=== PATIENT | female | born 1960 | race Caucasian/White ===

== ENCOUNTER 2019-11-27 01:18 | Outpatient (CLI) | payer BC, SELFPAY ==
--- NOTE | 2019-11-27 11:50 | DI.MAMMO_ITS ---
EXAM: MG MAMMO SCREENING CLINICAL HISTORY: SCREENING, Z00.00 TECHNIQUE: Bilateral full field digital CC and MLO mammographic images were obtained with 3D tomosyn thesis and utilizing computer aided detection (CAD). COMPARISON: Available for comparison. FINDINGS: Masses/Architectural Distortion: None seen. Microcalcifications: No suspicious pleomorphic-type are seen. Skin Thickening/Nipple Retraction: None. IMPRESSION: 1. No significant interval change with no specific features of malignancy noted. 2. Unless there is more urgent need, screening mammography is recommended, as per [employer] guidelines. BI-RADS Category 1 - Negative Breast Density - Category B - Scattered areas of fibroglandular density A negative radiographic report should not delay biopsy if a dominant or clinically suspicious mass is present. Up to ten percent of cancers are not identified on mammography. A negative report may reinforce clinical impression. Adenosis and dense breasts may obscure an underlying neoplasm. False positive reports average 6 to 10%. Patient will receive a letter notifying them of these results.
== END 2019-11-27 01:38 ==
PROVIDERS: PCP Nurse Practitioner Family; Visit Provider Nurse Practitioner Family
DX: Z12.31 Encounter for screening mammogram for malignant neoplasm of breast (principal); R92.2 Inconclusive mammogram
CPT/HCPCS: 77063; 77067

== ENCOUNTER 2021-06-17 08:58 | Outpatient (REF) | payer BC, SELFPAY ==
--- NOTE | 2021-06-17 08:30 | PAPFT_PTH ---
PATIENT: Romina Limon LOC: [facility]#:[id number] AGE/SX: 60/F ROOM: RE06/17/[address]: Buddy Jeter : 1960 BED: DIS: 06/17/2021 SPEC #: [id number] RECD: 06/17/21 17:40 STATUS: ARABELLA RESaw #: [id number] LANDEN: 06/17/21 08:[address]: Buddy Jeter DEPT: [facility] Cytology RECD BY: Veronica Kurtz ENTERED: 06/17/21 17:41 SP TYPE: PAPFT OTHR DR: Sabrina Wilkerson Tissues: 1 - CX/ENDOCX FOR PAP SMEARS Procedures: PAP THIN PREP/UVM Screening HPV DNA PROBE Comments: [id number]
== END 2021-06-17 08:59 | disposition home or self-care (01) ==
LOC: NCHCN 08:58
PROVIDERS: PCP Nurse Practitioner Family; Visit Provider Nurse Practitioner Family
DX: Z12.4 Encounter for screening for malignant neoplasm of cervix (principal); Z11.51 Encounter for screening for human papillomavirus (HPV)
CPT/HCPCS: 88142; 87624

== ENCOUNTER 2021-06-17 19:54 | Outpatient (REF) | payer BC, SELFPAY ==
[2021-06-17 14:47] LABS: HCT 44.8 % (36.0-46.0); HGB 14.7 g/dL (11.2-15.7); MCH 30.1 pg (27.0-33.0); MCHC 32.8 % (32.0-36.0); MCV 91.6 fL (80-95); MPV 10.9 fL (8.0-11.0); Platelet Count 246 10^3/uL (130-400); RBC 4.89 10^6/uL (3.93-5.22); RDW 12.6 % (11.7-14.6); RDW-SD 42.6 fL; WBC 5.61 10^3/uL (4.4-10.8)
[2021-06-17 15:13] LABS: ALT 64 U/L (14-59); AST 32 U/L (15-37); Alkaline Phosphatase 96 U/L (46-116); Anion Gap 10.9 mmol/L (3-11); BUN 12 mg/dL (7-18); Bilirubin, Total 0.5 mg/dL (0.2-1.0); CO2 23.1 mmol/L (21.0-32.0); CREATININE 0.7 mg/dL (0.55-1.02); Chloride 107 mmol/L (98-107); Glucose 99 mg/dL (74-106); Potassium 4.2 mmol/L (3.5-5.1); Sodium 141 mmol/L (136-145); TSH (W/Ref FT4) 2.74 uIU/mL (0.36-3.74); Total Protein 6.8 g/dL (6.4-8.2)
[2021-06-20 10:29] LABS: HIV-1/2 Ag & Ab Screen Negative (Negative)
[2021-06-20 10:40] LABS: Hepatitis C Ab w Rflx HCV PCR Negative (Negative)
== END 2021-06-17 19:55 | disposition home or self-care (01) ==
LOC: NCHCN 19:54
PROVIDERS: PCP Nurse Practitioner Family; Visit Provider Nurse Practitioner Family
DX: Z00.00 Encounter for general adult medical examination without abnormal findings (principal); Z11.4 Encounter for screening for human immunodeficiency virus [HIV]; Z11.59 Encounter for screening for other viral diseases
CPT/HCPCS: 80053; 85027; 86803; 87389; 84443

== ENCOUNTER 2022-03-28 01:10 | Outpatient (CLI) | payer BC, SELFPAY ==
--- NOTE | 2022-03-28 | DI.MAMMO_ITS ---
Exam(s) MAMMO SCREENING EXAM: MAMMO SCREENING CLINICAL HISTORY: SCREENING, Z12.39. TECHNIQUE: Bilateral full field digital CC and MLO mammographic images were obtained with 3D tomosyn thesis and utilizing computer aided detection (CAD). COMPARISON: Prior mammograms were reviewed. FINDINGS: There has been no significant change in the appearance and distribution of the fibroglandular tissue. There are no new spiculated masses nor malignant appearing microcalcification groups. There is no significant architectural distortion nor skin thickening-retraction. IMPRESSION: No radiographic evidence of malignancy. BI-RADS Category 1 - Negative Breast Density - Category B - Scattered areas of fibroglandular density Breast density Category C or D implies that the patient has dense breast tissue. Dense breast tissue can make it harder to find cancer on a mammogram. Dense breast tissue is also associated with an incr eased risk of breast cancer. This information about the result of the mammogram report was provided to the patient to raise their awareness. Use this report when you speak with the patient about their risks for breast cancer, which includes their family history. At that time, you may recommend additional screening tests (Ultrasoun d or MRI) as these tests may add significant information. A negative radiographic report should not delay biopsy if a dominant or clinically suspicious mass is present. Up to ten percent of cancers are not identified on mammography. A negative report may reinforce clinical impression. Adenosis and dense breasts may obscure an underlying neoplasm. False positive reports average 6 to 10%. Patient will receive a letter notifying them of these results.
== END 2022-03-28 01:30 ==
LOC: DI 01:11
PROVIDERS: PCP Nurse Practitioner Family; Visit Provider Nurse Practitioner Family
DX: Z12.31 Encounter for screening mammogram for malignant neoplasm of breast (principal)
CPT/HCPCS: 77063; 77067

== ENCOUNTER 2022-05-02 09:01 | Day surgery (SDC) | payer BC, SELFPAY ==
--- NOTE | 2022-05-01 20:35 | W.PM.DSUDISC ---
Date of service: 05/02/22 Time of Service: 10:56 Discharge Plan Disposition Patient Disposition: Home Condition: Good Discharge Details Reason For Visit: Screening colonoscopy Attending Provider: Bert Ruelas Primary Care Provider: Sabrina Wilkerson Home Meds and New Rx's Prescriptions: Continued 5-hydroxytryptophan (5-HTP) 100 mg tablet extended release 100 mg PO DIRECTED lidocaine HCl [Lidocaine Viscous] 15 ML solution 5 ml PO QID PRN PRN (Reason: Pain) Qty: 100 0RF Discontinued bisacodyl [Dulcolax (bisacodyl)] 5 mg tablet,delayed release (DR/EC) 5 mg PO ONCE Qty: 4 0RF Rx Instructions: Take according to provider's instructions for colonoscopy prep. polyethylene glycol 3350 17 gram/dose powder 17 g PO ONCE Qty: 238 0RF Rx Instructions: To be taken as directed by prescriber's office for colonoscopy prep. Discharge Instructions Instructions: Diverticulosis (GEN), Diverticulosis Diet (GEN), Colorectal Polyps (GEN) Additional Instructions: Romina, we were able to complete your colonoscopy without any difficulty today. I did find 1 polyp in the rectum. It was small. I removed it completely. I will follow-up with you with the results of the pathology report once they are available. Incidentally, you also have some occasional pancolonic diverticulosis. These are weak spots in the colon wall. We have attached some information here regarding basic dietary management, and symptoms to be mindful of. 1. If tolerated, consume a soft, low fiber diet for 1-2 days. 2. Do not drive, drink alcohol, operate machinery, make critical decisions, or do activities that require coordination or balance for 24 hours. 3. Because air was put into your colon during the procedure, expelling air from your rectum (passing gas or farting) is normal. 4. You may not have a bowel movement for 1-3 days because of the colonoscopy prep. This is normal. 5. Go directly to the emergency room if you notice any of the following: Develop chills (warm to touch), or if you have a thermometer and your temperature is above 101 Difficulty breathing or difficultly swallowing Persistent vomiting Severe abdominal pain, other than gas cramps Severe chest pain Black, tarry stools Any bleeding ? exceeding one tablespoon 6. Call your physician if the site where your intravenous was started becomes red, swollen, painful, and warm to touch. 7. Your physician has reviewed your pre-procedure medications. Please continue to take those medications as previously ordered. You will be given specific information/education regarding any changes to your medications before leaving. Activity:: Activity as Tolerated Diet:: As Tolerated Discharge Orders Discharge Orders: Discharge Order (Routine); Ordered 05/01/22 Ordered By: Bert Ruelas DS: Diagnosis Discharge Diagnosis (1) Screening for colon cancer: Status: Acute Asessment and Plan: Follow-up on pathology report from the polypectomy
--- NOTE | 2022-05-01 20:37 | W.COLOREPORT ---
Date of service: 05/02/22 Time of Service: 10:58 Colonoscopy Report Date of procedure: 05/02/22 Pre-op diagnosis general: Screening colonoscopy Post-op diagnosis procedure note: other (Rectal polyp, rare pancolonic diverticulosis) Procedure: Colonoscopy with polypectomy Surgeon: Bert Ruelas Anesthesia Type: General:No Airway Estimated blood loss (mL): 10 Pathology: other (Rectal polyp) Complications: None Disposition: same day Indications: Romina is 61 years old with a first degree relative with colon cancer. She is undergoing screening colonoscopy. Prep: Miralax/Dulcolax Procedure Start Time: 10:30 Procedure End Time: 10:43 Retraction Time: 8 Findings: Rectal polyp, rare pancolonic diverticulosis Procedure Description: After the induction of monitored anesthetic care, and with the patient in left lateral decubitus position, I began by performing an external anorectal exam.? Perineum and skin were normal, as was the anal verge.? There was no not evidence of external hemorrhoids.? Next, I performed a digital rectal exam.? I did appreciate any abnormal findings.? Next, I advanced a colonoscope into the rectal vault.? I performed retroflexion.? This was normal.? Using insufflation, I then advanced the colonoscope beyond the rectal folds and into the sigmoid colon before advancing towards the cecum.? The quality of the prep was excellent.? There were very rare diverticula along the entire length of the colon. The scope was noted to be in the cecum by identification of the ileocecal valve and appendiceal orifice.? I then began withdrawing the colonoscope using repeated irrigation as necessary for full evaluation of the colonic mucosa. ?Once the scope was withdrawn to the level of the rectum, great care was taken to examine portions of the rectal folds.?Around 10 cm from the anal verge I identified a 0.25 cm polyp. ?It appeared sessile in character. ?I was able to remove this with a cold forcep polypectomy. ?I examined the site, and there was minimal bleeding. ?Once this was completed, I continued to withdraw the scope and examine the remainder of the colonic mucosa. Finally, the scope was withdrawn and the patient was brought to the same-day surgery recovery unit as the anesthetic wore off. ?The findings and instructions were shared with the patient prior to discharge.
[2022-05-02 09:17] VITALS: BP 133/87; PULSE 83; RESP 18; TEMP 36; O2SAT 97
[2022-05-02] MEDS: Lactated Ringers 1,000 ML 80 ML IV (09:48)
--- NOTE | 2022-05-02 10:00 | W.ANESPRE ---
General Info Date of Service Date Performed: 05/02/22 Height: 5 ft Weight: 66 kg Body Mass Index (BMI): 28.4 Surgical Procedure: Operation Date: 05/02/22 10:50 Proposed Procedure Side Surgeon p Colonoscopy Bert Ruelas MD Meds Allergies and Home Medications Allergies Allergy/AdvReac Type Severity Reaction Status Date / Time No Known Allergies Allergy Unverified 05/02/22 09:27 Home Medication Medication Instructions Recorded lidocaine HCl 2 % mucosal solution 5 ml PO QID PRN PRN Pain #100 mL 04/12/15 (Lidocaine Viscous) 5-hydroxytryptophan (5-HTP) 100 mg 100 mg PO DIRECTED 09/14/21 tablet,extended release Current Visit Medications: Current Medications Generic Name Dose Route Start Last Admin Trade Name Mikaq PRN Reason Stop Dose Admin Hyoscyamine Sulfate 0.125 mg 05/01/22 20:38 Hyoscyamine 0.125 Mg Sl/Oral/Chew SL DIRECTED PRN Ringer's Solution 1,000 mls @ 80 mls/hr 05/02/22 06:00 05/02/22 09:48 IV 05/31/22 23:59 80 mls/hr INFUSION JOANNA Administration IV Miscellaneous Supplies 1 each 05/02/22 06:00 Iv Access IV 05/31/22 23:59 DIRECTED JOANNA Ondansetron HCl 4 mg 05/01/22 20:38 Ondansetron 4 Mg/2 Ml Vial IVP Q4H PRN PRN Nausea / Vomiting Sodium Chloride 0 ml 05/02/22 06:00 Normal Saline Flush 10 Ml Syr IV 05/31/22 23:59 PRN PRN Sodium Chloride 0 ml 05/02/22 06:00 Normal Saline 10 Ml Vial IJ 05/31/22 23:59 DIRECTED PRN Sterile Water 0 ml 05/02/22 06:00 Water,Injection,Sterile 10 Ml Vial IJ 05/31/22 23:59 DIRECTED PRN PFSH Active Problems Active Problems: Problem Status Onset Code Screening for colon cancer Z12.11 Family history of colon cancer Z80.0 Medical History Medical History (Updated 05/02/22 @ 09:27 by Mariangel Torres RN) Anxiety Depression Hx of ectopic Hx of ovarian cyst Skin lesion of face Tobacco Smoking/Tobacco Use Status: Never Alcohol Alcohol Intake: current Alcohol intake frequency: 0-2 drinks per day Alcohol type: beer, wine and hard liquor Substance Use Substance use: Never Substance use type: does not use Vital Signs and Lab Results Vital Signs Most Recent Vital Signs in EMR: Most Recent Vital Signs Temp Pulse Resp BP Pulse Ox 36 C L 83 18 133/87 97 05/02/22 09:17 05/02/22 09:17 05/02/22 09:17 05/02/22 09:17 05/02/22 09:17 Lab Results Blood Type / Crossmatch: No Data to Display Complete Blood Count: No Data to Display Complete Metabolic Panel: No Data to Display Liver Function Panel: No Data to Display Coagulation Panel: No Data to Display Cardiac Panel: No Data to Display Arterial Blood Gas: No Data to Display Venous Blood Gas: No Data to Display Pancreas Panel: No Data to Display Thyroid Panel: No Data to Display Infectious Disease: No Data to Display Blood Cultures: No Data to Display Toxicology Panel: No Data to Display Anesthesia Assessment and Plan Anesthesia History Personal History: No History of Anesthesia Complications Family History: No Family History of Anesthesia Complications Exercise Tolerance Exercise Tolerance: Metabolic Equivalents>4 Pertinent Negatives Pertinent Negatives: No Symptoms of GERD, No Major Cardiovascular Symptoms or Complaints and No Major Pulmonary Symptoms or Complaints Cardiac & Pulmonary Exam Cardiac Exam: Normal S1/S2 Heart Sounds Pulmonary Exam: Clear Bilateral Breath Sounds Implantable Cardiac Device Does patient have a Pacemaker or an ICD?: No Airway Exam Known Difficult Airway: No Mallampati Class: 1 Mouth Opening: Normal (> 3cm) Thyromental Distance: Greater than 3 cm Neck Range of Motion: Full ROM Neck Circumference: Normal Teeth Condition: Normal Dentition ASA Classification ASA Score: ASA 2 Emergency Case?: No NPO Status NPO Status: NPO Clears >2 hours, Solids >8 hours Anesthesia Plan Resuscitation Status: Full Code Anesthesia Technique: General Anesthesia Airway Planned: Natural Airway Monitors Used: Standard Monitors
[2022-05-02 10:22] VITALS: BMI 28.4
--- NOTE | 2022-05-02 10:33 | BOWEL_PTH ---
PATIENT: Romina Limon LOC: [facility] U#:[id number] AGE/SX: 61/F ROOM: RE05/02/[address]: Bert Ruelas MD : 1960 BED: DIS: 05/02/2022 SPEC #: [id number] RECD: 05/02/22 12:52 STATUS: ARABELLA REQ #: [id number] LANDEN: 05/02/22 10:[address]: Bert Ruelas DEPT: Surgical Specimen RECD BY: Veronica Kurtz ENTERED: 05/02/22 12:52 SP TYPE: Bowel OTHR DR: Sabrina Wilkerson Tissues: 1 - BIOPSY BOWEL Procedures: GROSS AND MICRO LEVEL 4 Comments: [id number]
[2022-05-02 10:48] VITALS: BP 99/66; PULSE 77; RESP 18; TEMP 36.3; O2SAT 97
--- NOTE | 2022-05-02 11:07 | W.ANESPOSTOP ---
Postoperative Evaluation Date, Time and Location Date Performed: 05/02/22 Time Performed: 11:07 Patient Location: Day Surgery Unit Vital Signs Most Recent Imported Vital Signs: Most Recent Vital Signs Temp Pulse Resp BP Pulse Ox 36.3 C L 77 18 99/66 L 97 05/02/22 10:48 05/02/22 10:48 05/02/22 10:48 05/02/22 10:48 05/02/22 10:48 Pain Score Most Recent Pain Score: Most Recent Pain Score Pain Level 0 05/02/22 10:48 Assessment Mental Status: Awake (Alert & Oriented to Patient Baseline) Airway and Respiratory Function: Patent airway with normal (patient baseline) respiratory exam Cardiovascular Function: Hemodynamically Stable Hydration Status: Adequately Hydrated Nausea & Vomiting: No Nausea or Vomiting Pain: Pt. Denies Any Pain Peripheral Nerve Block: Patient did not receive a nerve block
[2022-05-02 11:16] VITALS: BP 125/76; PULSE 57; RESP 18; TEMP 36.1; O2SAT 100
== END 2022-05-02 11:35 | disposition home or self-care (01) ==
PROVIDERS: PCP Nurse Practitioner Family; Visit Provider Surgery
PROC: 0DJD8ZZ Inspection of Lower Intestinal Tract, Via Natural or Artificial Opening Endoscopic (ICD-10-PCS; CPT 45378; principal; 2022-05-02 10:45)
DX: Z12.11 Encounter for screening for malignant neoplasm of colon (principal); K62.1 Rectal polyp; K57.30 Diverticulosis of large intestine without perforation or abscess without bleeding; Z80.0 Family history of malignant neoplasm of digestive organs
CPT/HCPCS: 45380; 88305

== ENCOUNTER 2022-11-23 12:28 | Outpatient (REF) | payer BC, SELFPAY ==
[2022-11-23 19:59] LABS: Abs Immature Grans 0.01 10^3/uL (0.0-0.06); Absolute Basophil Count 0.04 10^3/uL (0.0-0.2); Absolute Eosinophil Count 0.04 10^3/uL (0.0-0.7); Absolute Lymphocyte Count 1.11 10^3/uL (1.2-3.4); Absolute Monocyte Count 0.53 10^3/uL (0.1-0.8); Absolute Neutrophil Count 4.34 10^3/uL (1.2-6.7); Basophils % 0.7; Eosinophils % 0.7; HCT 44.9 % (36.0-46.0); HGB 15.1 g/dL (11.2-15.7); Immature Grans % 0.2; Lymphocytes % 18.3; MCH 30.5 pg (27.0-33.0); MCHC 33.6 % (32.0-36.0); MCV 91 fL (80-95); MPV 10.8 fL (8.0-11.0); Monocytes % 8.7; Neutrophils % 71.4; Platelet Count 249 10^3/uL (130-400); RBC 4.95 10^6/uL (3.93-5.22); RDW 12.5 % (11.7-14.6); RDW-SD 41.6 fL; WBC 6.07 10^3/uL (4.4-10.8)
[2022-11-23 20:12] LABS: ALT 58 U/L (14-59); AST 38 U/L (15-37); Albumin 4.1 g/dL (3.4-5.0); Alkaline Phosphatase 105 U/L (46-116); BUN 12 mg/dL (7-18); Bilirubin, Total 0.7 mg/dL (0.2-1.0); CREATININE 0.7 mg/dL (0.55-1.02); Calcium 9.4 mg/dL (8.5-10.1); Calculated LDL 145 mg/dL (<100); Chloride 104 mmol/L (98-107); Cholesterol 233 mg/dL (<200); Estimated GFR 97.72 (mL/min/1.73m2); Glucose 88 mg/dL (74-106); HDL Cholesterol 76 mg/dL (40-60); Potassium 4.2 mmol/L (3.5-5.1); Sodium 138 mmol/L (136-145); TSH 1.83 uIU/mL (0.36-3.74); Total Protein 7.3 g/dL (6.4-8.2); Triglyceride 64 mg/dL (<150)
[2022-11-23 20:31] LABS: FREE T4 1.11 ng/dL (0.76-1.46)
== END 2022-11-23 12:29 | disposition home or self-care (01) ==
LOC: NCHCN 12:28
PROVIDERS: PCP Nurse Practitioner Family; Visit Provider Nurse Practitioner Family
DX: R53.83 Other fatigue (principal); Z13.220 Encounter for screening for lipoid disorders
CPT/HCPCS: 80053; 80061; 84439; 84443; 85025

== ENCOUNTER → 2023-03-29 01:08 | Outpatient (CLI) | payer BC, SELFPAY ==
--- NOTE | 2023-03-29 08:46 | DI.MAMMO_ITS ---
Exam(s) MAMMO SCREENING EXAM: MAMMO SCREENING CLINICAL HISTORY: SCREENING,Z12.39 TECHNIQUE: Bilateral full field digital CC and MLO mammographic images were obtained with 3D tomosyn thesis and utilizing computer aided detection (CAD). COMPARISON: Available for comparison. FINDINGS: Masses/Architectural Distortion: None seen. Microcalcifications: No suspicious pleomorphic-type are seen. Skin Thickening/Nipple Retraction: None. IMPRESSION: 1. No significant interval change with no specific features of malignancy noted. 2. Unless there is more urgent need, screening mammography is recommended, as per [employer] guidelines. BI-RADS Category 1 - Negative Breast Density - Category B - Scattered areas of fibroglandular density Breast density category C or D implies that the patient has dense breast tissue. Dense breast tissue is very common and is not abnormal but dense breast tissue can make it harder to find cancer on a ma mmogram. Also, dense breast tissue may increase their breast cancer risk. This information about the result of the mammogram report was provided to the patient to raise their awareness. Use this report when you speak with the patient about their risks for breast cancer, which includes their family hist ory. At that time, you may recommend for more screening tests (Ultrasound or MRI) as they might be us eful based on their risk. A negative radiographic report should not delay biopsy if a dominant or clinically suspicious mass is present. Up to ten percent of cancers are not identified on mammography. A negative report may reinforce clinical impression. Adenosis and dense breasts may obscure an underlying neoplasm. False positive reports average 6 to 10%. Patient will receive a letter notifying them of these results.
== END ==
PROVIDERS: PCP Nurse Practitioner Family; Visit Provider Nurse Practitioner Family
DX: Z12.31 Encounter for screening mammogram for malignant neoplasm of breast (principal)
CPT/HCPCS: 77063; 77067

== ENCOUNTER 2024-01-15 16:00 | Outpatient (REF) | payer BC, SELFPAY ==
[2024-01-15 20:36] LABS: HCT 42.1 % (36.0-46.0); HGB 13.8 g/dL (11.2-15.7); MCH 30.1 pg (27.0-33.0); MCHC 32.8 % (32.0-36.0); MCV 92 fL (80-95); MPV 10.3 fL (8.0-11.0); Platelet Count 347 10^3/uL (130-400); RBC 4.58 10^6/uL (3.93-5.22); RDW-SD 40.8 fL; WBC 9.85 10^3/uL (4.4-10.8)
[2024-01-15 20:57] LABS: ALT 36 U/L (14-59); AST 25 U/L (15-37); Albumin 3.5 g/dL (3.4-5.0); Alkaline Phosphatase 115 U/L (46-116); Anion Gap 10.7 mmol/L (3-11); BUN 10 mg/dL (7-18); Bilirubin, Total 0.35 mg/dL (0.2-1.0); C-Reactive Protein 8.71 mg/dL (<or=0.5); CO2 24.3 mmol/L (21.0-32.0); CREATININE 0.7 mg/dL (0.55-1.02); Calcium 9.8 mg/dL (8.5-10.1); Chloride 107 mmol/L (98-107); Estimated GFR 97.12 (mL/min/1.73m2); Glucose 93 mg/dL (74-106); Lipase 30 U/L (16-77); Potassium 4.3 mmol/L (3.5-5.1); Sodium 142 mmol/L (136-145); Total Protein 6.9 g/dL (6.4-8.2)
== END 2024-01-15 16:01 | disposition home or self-care (01) ==
LOC: NCHCN 16:00
PROVIDERS: Visit Provider Nurse Practitioner Family
DX: R10.31 Right lower quadrant pain (principal)
CPT/HCPCS: 80053; 83690; 85027; 86140

== ENCOUNTER 2024-01-16 17:48 | Observation (INO) | payer BC, SELFPAY ==
[2024-01-16] VITALS (33 sets, daily range): BP systolic 107–151; BP diastolic 30–95; PULSE 52–83; RESP 16–20; TEMP 36.2–37.1; O2SAT 95–99
--- NOTE | 2024-01-16 18:10 | ED.GENADUL_ITS ---
Discharge Plan Disposition Patient Disposition: Admit to [facility] Discharge Details Clinical Impression: Abdominal pain, Appendicitis Primary Care Provider: Unknown,Unknown ED Provider: Jamey Shell Home Meds and New Rx's Prescriptions: No Action 5-hydroxytryptophan (5-HTP) 100 mg tablet extended release 100 mg PO DIRECTED lidocaine HCl [Lidocaine Viscous] 15 ML solution 5 ml PO QID PRN PRN (Reason: Pain) Qty: 100 0RF HPI General Date/Time Provider Initiated Documentation: 01/16/24 17:50 . HPI Narrative: MDM This is an overall very well-appearing normothermic and not tachycardic 63-year-old female with outpatient CT scan concerning for acute appendicitis. Patient has no pain out of proportion to suggest necrotizing soft tissue infection. She is not septic appearing so did not obtain lactate nor drop blood cultures but I did treat empirically with piperacillin/tazobactam. No left lower quadrant tenderness to suggest diverticulitis. No dysuria or frequency so doubt UTI. No rash to abdomen to suggest zoster. No cough nor fevers to suggest pneumonia. No chest pain to suggest ACS and no nausea no vomiting. No history of recent falls to suggest referred pain from hip fracture. 6:27 PM I spoke to Dr. Leyva who agreed graciously to accept the patient for hospitalization. He reported that he would see the patient in the morning. She can have a clear liquid diet for now and she will be n.p.o. at midnight. 7 p.m. Comprehensive metabolic panel showing mild anion gap no DORITA. Mild hyperglycemia but normal bicarbonate??not consistent with DKA. No LFT abnormalities. CBC lacks anemia thrombocytopenia and leukocytosis. 9 PM Met with the patient again. She was felt comfortable. Advised. Plan for n.p.o. at midnight. HPI This is a 63-year-old female with remote history of gynecological surgeries in the past arrived emergency department via private vehicle in the setting of abdominal pain and CT scan concerning for the possibility of appendicitis. Patient reports that she has had abdominal pain for the past approximately 9 days. She initially thought was a stomach bug. Then improved after having a large painful bowel movement. She also has a history of IBS. She has not been nauseous nor vomiting. She last ate at 5 PM this afternoon when she had some custard. Denies dysuria frequency chest pain cough and shortness of breath. Exam General: Well-appearing in no acute distress speaking in complete sentences. Head: Normocephalic, atraumatic. Eye: Extraocular eye movements intact. No conjunctival injection. No scleral icterus. Ear, nose, mouth, throat: Grossly normal inspection. Normal voice, handling secretions normally. Neck: Trachea midline. Cardiovascular: Well-perfused distal extremities. Respiratory: Nonlabored respiration. Gastrointestinal: Nondistended abdomen. Soft, minimally tender abdomen in the right lower quadrant. No rebound. No guarding. Musculoskeletal: No edema. Moving all 4 extremities spontaneously. Skin: Normal for age and race, grossly normal temperature and turgor. No acute rash. Neurologic: Alert and appropriate, no apparent acute deficits. Psychiatric: Mood and manner are appropriate. Grooming and personal hygiene are appropriate. Related Data Home Medications ?Medication ?Instructions ?Recorded ?Confirmed lidocaine HCl 2 % mucosal solution 5 ml PO QID PRN PRN Pain #100 mL 04/12/15 01/16/24 (Lidocaine Viscous) 5-hydroxytryptophan (5-HTP) 100 mg 100 mg PO DIRECTED 09/14/21 01/16/24 tablet,extended release Previous Rx's ?Medication ?Instructions ?Recorded lidocaine HCl 2 % mucosal solution 5 ml PO QID PRN PRN Pain #100 mL 04/12/15 (Lidocaine Viscous) Allergies Allergy/AdvReac Type Severity Reaction Status Date / Time No Known Allergies Allergy Unverified 01/16/24 17:55 General Stated Complaint: Abd Prob GIOVANI: 3 Course Vital Signs Vital signs: Vital Signs Temperature 37.1 C 01/16/24 17:51 Pulse 83 01/16/24 17:51 Respiratory Rate 20 01/16/24 17:51 Blood Pressure 151/77 H 01/16/24 17:51 Pulse Oximetry 97 01/16/24 17:51 Temperature 37.1 C 01/16/24 18:01 Temperature Source Oral 01/16/24 18:01 Pulse 83 01/16/24 18:01 Respiratory Rate 20 01/16/24 18:01 Respiratory Effort Normal, Non-Labored 01/16/24 18:01 Blood Pressure 151/77 H 01/16/24 18:01 Blood Pressure Position Sitting 01/16/24 18:01 Pulse Oximetry 97 01/16/24 18:01 Oxygen Delivery Method Room Air 01/16/24 18:01 Oxygen Flow Rate 0 01/16/24 18:01 Pain Level 0 01/16/24 18:01 Medical Decision Making Quality:SDOH Health Related Social Needs: No Data to Display PFSH All Active Problems (Updated 01/16/24 @ 18:29 by Jamey Shell MD) Appendicitis (Acute) Abdominal pain (Acute) Tubular adenoma of colon (Acute) Screening for colon cancer (Acute) Family history of colon cancer (Acute) father in his 80s Medical History (Updated 01/16/24 @ 18:29 by Jamey Shell MD) Hx of ovarian cyst Hx of ectopic Anxiety Depression Skin lesion of face Surgical History (Updated 05/30/22 @ 15:10 by Sada Merrill RN) History of colonoscopy (~04/2022) Social History (Updated 04/13/22 @ 12:04 by MISAEL Douglas) Smoking/Tobacco Use Status: Never Smoking risk assessment performed?: Yes Alcohol Intake: current Alcohol Intake frequency: 0-2 drinks per day Alcohol type: beer, wine and hard liquor Drug use: Never Substance use type: does not use Do you feel safe at home: Yes Do you feel safe in your relationship?: Yes
[2024-01-16 18:29] LABS: Abs Immature Grans 0.02 10^3/uL (0.0-0.06); Absolute Basophil Count 0.05 10^3/uL (0.0-0.2); Absolute Eosinophil Count 0.05 10^3/uL (0.0-0.7); Absolute Lymphocyte Count 1.52 10^3/uL (1.2-3.4); Absolute Monocyte Count 0.74 10^3/uL (0.1-0.8); Absolute Neutrophil Count 8.03 10^3/uL (1.2-6.7); Basophils % 0.5 %; Eosinophils % 0.5 %; HCT 41.2 % (36.0-46.0); HGB 13.6 g/dL (11.2-15.7); Immature Grans % 0.2 %; Lymphocytes % 14.6 %; MCV 91 fL (80-95); MPV 9.3 fL (8.0-11.0); Monocytes % 7.1 %; Neutrophils % 77.1 %; Platelet Count 341 10^3/uL (130-400); RBC 4.53 10^6/uL (3.93-5.22); RDW 11.9 % (11.7-14.6); RDW-SD 39.8 fL; WBC 10.41 10^3/uL (4.4-10.8)
[2024-01-16] MEDS: PIPERACILLIN/TAZO 3.375 GM in Normal Saline 50 ML IVPB ×2 (18:33→23:39)
[2024-01-16 18:44] LABS: ALT 31 U/L (14-59); AST 18 U/L (15-37); Albumin 3.4 g/dL (3.4-5.0); Alkaline Phosphatase 116 U/L (46-116); Anion Gap 11.7 mmol/L (3-11); BUN 8 mg/dL (7-18); CO2 25.3 mmol/L (21.0-32.0); CREATININE 0.7 mg/dL (0.55-1.02); Calcium 9.4 mg/dL (8.5-10.1); Chloride 104 mmol/L (98-107); Estimated GFR 97.12 (mL/min/1.73m2); Glucose 110 mg/dL (74-106); Potassium 3.7 mmol/L (3.5-5.1); Sodium 141 mmol/L (136-145); Total Protein 7.2 g/dL (6.4-8.2)
--- NOTE | 2024-01-16 19:20 | W.SURGCON ---
Date of service: 01/16/24 Time of Service: 19:20 Assessment and Plan Assessment and plan (1) Appendicitis: Status: Acute Assessment and plan: 63 yo with appendicitis on cross sectional imaging. Somewhat unusual presentation being 9 days. Perhaps a viral illness to begin with has resulted in appendicitis now as a secondary process. Overall plan: Abx NPO DVT ppx analgesia prn Lap appendectomy tomorrow History of Present Illness Narrative: 63 yo woman with reported RLQ abdominal pain x 9 days presented after elective CT scan showed appendicitis. PFSH All Active Problems (Updated 01/16/24 @ 18:29 by Jamey Shell MD) Appendicitis (Acute) Abdominal pain (Acute) Tubular adenoma of colon (Acute) Screening for colon cancer (Acute) Family history of colon cancer (Acute) father in his 80s Medical History (Updated 01/16/24 @ 18:29 by Jamey Shell MD) Hx of ovarian cyst Hx of ectopic Anxiety Depression Skin lesion of face Surgical History (Updated 05/30/22 @ 15:10 by Sada Merrill RN) History of colonoscopy (~04/2022) Social History (Updated 04/13/22 @ 12:04 by MISAEL Douglas) Smoking/Tobacco Use Status: Never Smoking risk assessment performed?: Yes Alcohol Intake: current Alcohol Intake frequency: 0-2 drinks per day Alcohol type: beer, wine and hard liquor Drug use: Never Substance use type: does not use Do you feel safe at home: Yes Do you feel safe in your relationship?: Yes Exam Narrative Exam Narrative: Reportedly HD stable with soft abdomen, mild but focal tenderness. Results Last Vital Signs Temp 98.8 F 01/16/24 18:01 Pulse 60 01/16/24 18:45 Resp 20 01/16/24 18:01 BP 107/88 01/16/24 18:45 Pulse Ox 97 01/16/24 18:50 Labs 01/16/24 18:19 01/16/24 18:19 Labs: Laboratory Results - last 24 hr 01/16/24 18:19 WBC 10.41 RBC 4.53 Hgb 13.6 Hct 41.2 MCV 91 MCH 30.0 MCHC 33.0 RDW 11.9 Plt Count 341 MPV 9.3 Immature Gran % 0.2 Neutrophils % 77.1 Lymphocytes % 14.6 Monocytes % 7.1 Eosinophils % 0.5 Basophils % 0.5 Nucleated RBC % 0.0 Absolute Neutrophils 8.03 H Absolute Lymphocytes 1.52 Absolute Monocytes 0.74 Absolute Eosinophils 0.05 Absolute Basophils 0.05 Sodium 141 Potassium 3.7 Chloride 104 Carbon Dioxide 25.3 Anion Gap 11.7 H BUN 8 Creatinine 0.7 Est GFR (CKD-EPI 2020) 97.12 Glucose 110 H Calcium 9.4 Total Bilirubin 0.40 AST 18 ALT 31 Alkaline Phosphatase 116 Total Protein 7.2 Albumin 3.4 ABO/Rh A Positive Antibody Screen NEGATIVE
[2024-01-16] MEDS: Heparin 5,000 UNITS/ML VIAL 5000 UNITS SC (20:08)
[2024-01-16] MEDS: ACETAMINOPHEN 1,000 MG/100 ML BAG 400 MG IVPB (20:09)
--- NOTE | 2024-01-16 21:40 | W.PC.ACHO ---
Registration Status: Primary Language: Preferred Language: ED Information & Data Chief Complaint Abd Prob 01/16/24 18:14 Triage Note patient state she went to 01/16/24 17:51 her pcp yesterday and had a CT done today and was called to come in to the hospital because she has appendicitis . currently patient is having right sided abdominal pain with activities Medical / Surgical History (Last Updated 05/02/22 @ 09:27 by Mariangel Torres, [place]) Hx of ovarian cyst Hx of ectopic Anxiety Depression Skin lesion of face (Last Updated 05/30/22 @ 15:10 by Sada Merrill RN) History of colonoscopy (~04/2022) Most Recent Vital Signs Temperature 37.1 C 01/16/24 18:01 Temperature Source Oral 01/16/24 18:01 Pulse 60 01/16/24 21:01 Respiratory Rate 20 01/16/24 18:01 Respiratory Effort Normal, Non-Labored 01/16/24 18:01 Blood Pressure 123/68 01/16/24 21:01 Blood Pressure Mean 87 01/16/24 21:01 Blood Pressure Position Sitting 01/16/24 18:01 Pulse Oximetry 96 01/16/24 21:10 Oxygen Delivery Method Room Air 01/16/24 18:01 Oxygen Flow Rate 0 01/16/24 18:01 Pain Level 5 01/16/24 20:36 Allergies No Known Allergies Allergy (Unverified 01/16/24 17:55) Precautions Isolation Standard precaution 01/16/24 18:01 Active Medications Generic Name Dose Route Start Last Admin Trade Name Freq PRN Reason Stop Dose Admin Heparin Sodium (Porcine) 5,000 units 01/16/24 19:30 01/16/24 20:08 Heparin 5,000 Units/Ml Vial SC 5,000 units Q8H JOANNA Administration Piperacillin Sod/Tazobactam 50 mls @ 100 mls/hr 01/16/24 19:30 01/16/24 20:29 Sod 3.375 gm/ Sodium Chloride IVPB Not Given Q6H JOANNA Acetaminophen 1,000 mg in 100 mls @ 400 mls/hr 01/16/24 19:30 01/16/24 20:28 Ofirmev IVPB Infused Q6H JOANNA Infusion IV IV Catheter Type [Left Forearm Saline Lock ] IV Catheter Gauge [Left 20 Forearm] Diet Orders Category Date Time Status Nothing Per Oral [DIET] Nutrition 01/16/24 Dinner Active npo [Nothing Per Oral] [DIET] Nutrition 01/16/24 Dinner Active Diagnostics 01/16/24 Range/Units 18:19 WBC 10.41 (4.4-10.8) 10^3/uL RBC 4.53 (3.93-5.22) 10^6/uL Hgb 13.6 (11.2-15.7) g/dL Hct 41.2 (36.0-46.0) % MCV 91 (80-95) fL MCH 30.0 (27.0-33.0) pg MCHC 33.0 (32.0-36.0) % RDW 11.9 (11.7-14.6) % Plt Count 341 (130-400) 10^3/uL MPV 9.3 (8.0-11.0) fL Immature Gran % 0.2 % Neutrophils % 77.1 % Lymphocytes % 14.6 % Monocytes % 7.1 % Eosinophils % 0.5 % Basophils % 0.5 % Nucleated RBC % 0.0 (0.0-0.3) % Absolute Neutrophils 8.03 H (1.2-6.7) 10^3/uL Absolute Lymphocytes 1.52 (1.2-3.4) 10^3/uL Absolute Monocytes 0.74 (0.1-0.8) 10^3/uL Absolute Eosinophils 0.05 (0.0-0.7) 10^3/uL Absolute Basophils 0.05 (0.0-0.2) 10^3/uL Sodium 141 (136-145) mmol/L Potassium 3.7 (3.5-5.1) mmol/L Chloride 104 (98-107) mmol/L Carbon Dioxide 25.3 (21.0-32.0) mmol/L Anion Gap 11.7 H (3-11) mmol/L BUN 8 (7-18) mg/dL Creatinine 0.7 (0.55-1.02) mg/dL Est GFR (CKD-EPI 2020) 97.12 (mL/min/1.73m2) Glucose 110 H (74-106) mg/dL Calcium 9.4 (8.5-10.1) mg/dL Total Bilirubin 0.40 (0.2-1.0) mg/dL AST 18 (15-37) U/L ALT 31 (14-59) U/L Alkaline Phosphatase 116 (46-116) U/L Total Protein 7.2 (6.4-8.2) g/dL Albumin 3.4 (3.4-5.0) g/dL ABO/Rh A Positive Antibody Screen NEGATIVE Intake and Output - 24 Hour Total 01/16/24 17:48 thru 01/16/24 20:28 Intake Total 160 Balance 160 Weight 64.864 kg Intake: IV 160 Falls Risk Assessment History of Falls No History 01/16/24 18:01 Contributing Factors No Factors 01/16/24 18:01 Ambulatory Aids Independent 01/16/24 18:01 Tubes/Lines W/no contributing factors 01/16/24 18:01 Gait Evaluation No gait disturbance 01/16/24 18:01 Cognition No cognitive impairment 01/16/24 18:01 Fall Total Score 10 01/16/24 18:01 Level of Risk Standard/Low Risk 01/16/24 18:01 Problems (Last Updated 05/02/22 @ 09:27 by Mariangel Torres RN) Appendicitis (Acute) Abdominal pain (Acute) v v v v v v v v v Sending and/or Receiving Nurses: Please use comment section below to note any information pertinent to the patient hand-off not included above. Information / Comments: Pt AAOX3, pain controlled with tylenol, having diarrhea, 5 large loose BM. Report received from: Tamra Ortiz ED RN
[2024-01-16] MEDS: MORPHine 2 MG/ML SYR IVP (23:37)
[2024-01-17] VITALS (29 sets, daily range): BP systolic 63–110; BP diastolic 24–71; PULSE 57–82; RESP 12–23; TEMP 35.6–36.5; O2SAT 95–100; BMI 27.7
[2024-01-17] MEDS: ACETAMINOPHEN 1,000 MG/100 ML BAG 400 MG IVPB ×3 (02:08→19:54)
[2024-01-17] MEDS: MORPHine 2 MG/ML SYR IVP ×2 (06:03→21:18)
[2024-01-17] MEDS: PIPERACILLIN/TAZO 3.375 GM in Normal Saline 50 ML IVPB ×4 (06:05→23:46)
--- NOTE | 2024-01-17 08:20 | W.PM.PROGNOT ---
Date of Service Date of service: 01/17/24 Time of Service: 08:20 Assessment and Plan Assessment and plan (1) Appendicitis: Status: Acute Assessment and plan: 63-year-old woman with right lower quadrant pain and CT scan findings can concerning for acute appendicitis. Interestingly enough, her had Salmonella infection that required hospitalization only about 2 weeks ago or so. She herself is had her symptoms for 9 days. There is a family history of colon cancer and CT scan says an appendiceal mass cannot be ruled out. I have reviewed the CT scan myself. There is no free air and no obvious free fluid. To me the inflammation looks isolated to the appendix though it is certainly possible the terminal ileum is inflamed. I do not appreciate anything that suggests radiographically that it might be a mass. Overall I had a detailed discussion with the patient and her at the bedside about the possibility that this could be a Salmonella-induced mesenteric adenitis and/or terminal ileitis. While it is a rare entity, does well?described as a mimicker/masquerade for appendicitis. Her symptoms are completely atypical. She has had pain for 9 days which is unusual. She has no peritoneal signs on examination and did not have any last night when I examined her after her admission. The chance of this being an appendiceal tumor exists but I think it is unlikely. My recommendations are to proceed with diagnostic laparoscopy. If this is ileitis/cecum inflammation and the appendix looks completely normal, I am going to leave it in situ. This will reassure us both that it is not appendicitis #1 but also that there is no appendiceal mass. However, if there is any question of the appendix being the etiology and/or there is any mass?appearance to the appendix, then I will remove it. The patient and her are in agreement with the plan and wish to proceed. Overall plan: Diagnostic laparoscopy, likely appendectomy Subjective Subjective Interval history since last seen: No overnight events. She feels significantly better this morning. Exam Narrative Exam Narrative: Gen: Non-toxic, comfortable and interactive Neuro: Alert and oriented x3 Psych: Good mood and affect. Good insight and understanding into condition. Chest: Non-labored breathing, no wheezing, no visible shortness of breath. Heart: Regular Abdomen: Soft, nondistended, minimal tenderness in the right lower quadrant, no peritoneal signs Objective Last Vital Signs Temp 97.2 F L 01/17/24 06:19 Pulse 74 01/17/24 06:19 Resp 18 01/17/24 06:19 BP 106/57 L 01/17/24 06:19 Pulse Ox 97 01/17/24 06:19 Laboratory Results - last 24 hr 01/16/24 18:19 WBC 10.41 RBC 4.53 Hgb 13.6 Hct 41.2 MCV 91 MCH 30.0 MCHC 33.0 RDW 11.9 Plt Count 341 MPV 9.3 Immature Gran % 0.2 Neutrophils % 77.1 Lymphocytes % 14.6 Monocytes % 7.1 Eosinophils % 0.5 Basophils % 0.5 Nucleated RBC % 0.0 Absolute Neutrophils 8.03 H Absolute Lymphocytes 1.52 Absolute Monocytes 0.74 Absolute Eosinophils 0.05 Absolute Basophils 0.05 Sodium 141 Potassium 3.7 Chloride 104 Carbon Dioxide 25.3 Anion Gap 11.7 H BUN 8 Creatinine 0.7 Est GFR (CKD-EPI 2020) 97.12 Glucose 110 H Calcium 9.4 Total Bilirubin 0.40 AST 18 ALT 31 Alkaline Phosphatase 116 Total Protein 7.2 Albumin 3.4 ABO/Rh A Positive Antibody Screen NEGATIVE PAWSS Have you Been Recently Intoxicated or Drunk Within the Last 30 days?: No Have you Ever Experienced Previous Episodes of Alcohol Withdrawal?: No Have you ever Experienced Withdrawal Seizures?: No Have you ever Experienced Delirium Tremens(DT)s?: No Have you ever undergone Alcohol Rehabilitation Treatment (i.e, inpt ot outpatient treatment programs)?: No Have you ever Experienced Blackouts?: No Have you ever Combined Alcohol with other Downers within the last 90 days?: No Have you ever Combined Alcohol with any other Substance of Abuse during the last 90 days?: No Positive Blood Alcohol level on Presentation? [PCS.BAL]: No Evidence of Increased Autonomic Activity (i.e. HR>120, tremor, sweating, agitation, nausea)?: No Result: 0 Time Spent with Patient Time Spent with Patient: <25 minutes Time was spent: preparing to see the patient(eg.review tests), obtaining and/or reviewing separately otained hiistory, ordering medications,tests, procedures, referring, communicating with other health director of healthcare systems, indepentently interpreting results, counseling the patient, care coordination and other
--- NOTE | 2024-01-17 11:30 | ANES.PREOP_ITS ---
General Info Date of Service Date Performed: 01/17/24 Height: 5 ft Weight: 64.365 kg Body Mass Index (BMI): 27.7 Surgical Procedure: Operation Date: 01/17/24 13:10 Proposed Procedure Side Surgeon p Appendectomy Laparoscopic Wesley Leyva MD Meds Allergies and Home Medications Allergies Allergy/AdvReac Type Severity Reaction Status Date / Time cedar leaf Allergy Severe Hives Verified 01/16/24 23:09 cedarwood Allergy Severe Hives Verified 01/16/24 23:09 Home Medication ?Medication ?Instructions ?Recorded lidocaine HCl 2 % mucosal solution 5 ml PO QID PRN PRN Pain #100 mL 04/12/15 (Lidocaine Viscous) 5-hydroxytryptophan (5-HTP) 100 mg 100 mg PO DIRECTED 09/14/21 tablet,extended release Current Visit Medications: Current Medications Generic Name Dose Route Start Last Admin Trade Name Freq PRN Reason Stop Dose Admin Heparin Sodium (Porcine) 5,000 units 01/17/24 06:00 01/17/24 06:04 Heparin 5,000 Units/Ml Vial SC Not Given Q8H JOANNA Piperacillin Sod/Tazobactam 50 mls @ 100 mls/hr 01/17/24 00:00 01/17/24 06:40 Sod 3.375 gm/ Sodium Chloride IVPB Infused Q6H JOANNA Infusion Acetaminophen 1,000 mg in 100 mls @ 400 mls/hr 01/17/24 02:00 01/17/24 08:52 Ofirmev IVPB 400 mls/hr Q6H JOANNA Administration IV Miscellaneous Supplies 1 each 01/16/24 19:30 Iv Access IV DIRECTED JOANNA Morphine Sulfate 2 mg 01/16/24 19:23 01/17/24 06:03 Morphine 2 Mg/Ml Syr IVP 2 mg Q1H PRN PRN Administration Ondansetron HCl 4 mg 01/16/24 19:23 Ondansetron 4 Mg/2 Ml Vial IVP Q4H PRN PRN PFSH Active Problems Active Problems: Problem Status Onset Code Appendicitis Acute K37 Abdominal pain Acute R10.9 Tubular adenoma of colon Acute D12.6 Screening for colon cancer Acute Z12.11 Family history of colon cancer Acute Z80.0 Medical History Medical History (Updated 01/16/24 @ 21:47 by REYES OCNTRERAS) Hx of ovarian cyst Hx of ectopic Anxiety Depression Skin lesion of face Surgical History Surgical History (Updated 05/30/22 @ 15:10 by Sada Merrill RN) History of colonoscopy (~04/2022) Tobacco Smoking/Tobacco Use Status: Never Alcohol Alcohol Intake: current Alcohol intake frequency: 0-2 drinks per day Alcohol type: beer, wine and hard liquor Substance Use Substance use: Never Substance use type: does not use Vital Signs and Lab Results Vital Signs Most Recent Vital Signs in EMR: Most Recent Vital Signs Temp Pulse Resp BP Pulse Ox 36.2 C L 74 18 106/57 L 97 01/17/24 06:19 01/17/24 06:19 01/17/24 06:19 01/17/24 06:19 01/17/24 06:19 Lab Results 01/16/24 18:19 01/16/24 18:19 Blood Type / Crossmatch: 2 Antibody Screen NEGATIVE 01/16/24 Complete Blood Count: 2 White Blood Count 10.41 10^3/uL (4.4-10.8) 01/16/24 18:19 Red Blood Count 4.53 10^6/uL (3.93-5.22) 01/16/24 18:19 Hemoglobin 13.6 g/dL (11.2-15.7) 01/16/24 18:19 Hematocrit 41.2 % (36.0-46.0) 01/16/24 18:19 Platelet Count 341 10^3/uL (130-400) 01/16/24 18:19 Complete Metabolic Panel: 2 Sodium 141 mmol/L (136-145) 01/16/24 18:19 Potassium 3.7 mmol/L (3.5-5.1) 01/16/24 18:19 Chloride 104 mmol/L (98-107) 01/16/24 18:19 Carbon Dioxide 25.3 mmol/L (21.0-32.0) 01/16/24 18:19 BUN 8 mg/dL (7-18) 01/16/24 18:19 Creatinine 0.7 mg/dL (0.55-1.02) 01/16/24 18:19 Est GFR (CKD-EPI 2020) 97.12 (mL/min/1.73m2) 01/16/24 18:19 Calcium 9.4 mg/dL (8.5-10.1) 01/16/24 18:19 Albumin 3.4 g/dL (3.4-5.0) 01/16/24 18:19 Glucose 110 mg/dL (74-106) H 01/16/24 18:19 C-Reactive Protein 8.71 mg/dL (<or=0.5) H 01/15/24 14:40 Liver Function Panel: 2 Alanine Aminotransferase (ALT/SGPT) 31 U/L (14-59) 01/16/24 18: 19 Aspartate Amino Transf (AST/SGOT) 18 U/L (15-37) 01/16/24 18:19 Coagulation Panel: 2 No Data to Display Cardiac Panel: 2 No Data to Display Arterial Blood Gas: 2 No Data to Display Venous Blood Gas: 2 No Data to Display Pancreas Panel: 2 Lipase 30 U/L (16-77) 01/15/24 14:40 Thyroid Panel: 2 No Data to Display Infectious Disease: 2 No Data to Display Blood Cultures: 2 No Data to Display Toxicology Panel: 2 No Data to Display Anesthesia Assessment and Plan Anesthesia History Personal History: No History of Anesthesia Complications Family History: No Family History of Anesthesia Complications Exercise Tolerance Exercise Tolerance: Metabolic Equivalents>4 Pertinent Negatives Pertinent Negatives: No Symptoms of GERD, No Major Cardiovascular Symptoms or Complaints and No Major Pulmonary Symptoms or Complaints Cardiac & Pulmonary Exam Cardiac Exam: Normal S1/S2 Heart Sounds Pulmonary Exam: Clear Bilateral Breath Sounds Implantable Cardiac Device Does patient have a Pacemaker or an ICD?: No Airway Exam Known Difficult Airway: No Mallampati Class: 1 Mouth Opening: Normal (> 3cm) Thyromental Distance: Greater than 3 cm Neck Range of Motion: Full ROM Neck Circumference: Normal Teeth Condition: Normal Dentition ASA Classification ASA Score: ASA 2 Emergency Case?: Yes NPO Status NPO Status: NPO Clears >2 hours, Solids >8 hours Anesthesia Plan Resuscitation Status: Full Code Anesthesia Technique: General Anesthesia Airway Planned: Endotracheal Tube Monitors Used: Standard Monitors
[2024-01-17] MEDS: Lactated Ringers 1,000 ML 30 ML IV (13:33)
--- NOTE | 2024-01-17 14:43 | APP_PTH ---
PATIENT: Romina Limon LOC: U#:[id number] AGE/SX: 63/F ROOM: 214 RE01/16/[address]: Wesley Leyva : 1960 BED: A DIS: 01/20/2024 SPEC #: [id number] RECD: 01/17/24 18:30 STATUS: ARABELLA REQ #: [id number] LANDEN: 01/17/24 14:[address]: Wesley Leyva DEPT: Surgical Specimen RECD BY: Veronica Kurtz ENTERED: 01/17/24 18:31 SP TYPE: Appendix OTHR DR: Unknown,Unknown Tissues: 1 - APPENDIX NOT INCIDENTAL Procedures: GROSS AND MICRO LEVEL 3 Comments: [id number]
[2024-01-17] MEDS: Bupivacaine 0.25% Pres-Free 30 ML VIAL (14:58)
[2024-01-17] MEDS: Bupivacaine LIPOSOME/PF 133 MG/10 ML VIAL IJ (14:58)
[2024-01-17] MEDS: ePHEDrine 25 MG/5 ML Syringe IVP ×2 (15:12→15:35)
[2024-01-17] MEDS: fentaNYL 100 MCG/2 ML VIAL IVP ×2 (15:35→15:45)
--- NOTE | 2024-01-17 16:05 | PDOC.CMIN ---
Date of service: 01/17/24 Time of Service: 16:07 Care Management Initial Assmt Initial Assessment Reason for Hospitalization: acute appendicitis Functional Status/Living Situation Patient Presentation: Romina was in the OR when CM attempted to meet with her. Later, CM attempted to meet with her once she arrived to her room, but her RN was completing an assessment, therefore she was not available. Per chart review, Romina lives in [place] with her , Gunnar. They have a son who lives nearby, and a daughter who lives in [place]. CM will continue to follow. Town of Residence: [place] Resides with: Spouse Natural Supports: , Gunnar daughter, Regina son, Kenroy Instrumental Activities of Daily Living (ADLs): Independent Medications Medication Management: No Issues/Barriers identified Advance Directives Advance Directives: Do you have an Advance Directive: N 06/30/21 14:51 AD On File at [facility]: N 06/30/21 14:51 Date Asked 01/16/24 01/16/24 11:28 AD Date Reviewed COLST On File at [facility] COLST Date Scanned Code Status Resuscitation Status Full Code Insurance Coverage/Financial Issues Insurance: BC/BS Care Team Visit Care Team Role Provider Type Unknown Unknown Primary Care Provider STAFF PHYSICIAN Jamey Shell MD Emergency Provider [facility] STAFF PHYSICIAN Wesley Leyva MD Admit Provider [facility] STAFF PHYSICIAN Attending Provider Discharge Potential Discharge Needs: Surgical F/U Appt Anticipated Barriers to Discharge: None Identified Patient/Family Education Needs: Review discharge instructions, discuss Ask Me Three Transportation: Private vehicle Plan: Anticipate Romina will return home once medically cleared. Her will drive her home via private vehicle. She will follow up with surgical services and her discharge plan of care. CM will continue to follow. PFSH All Active Problems (Updated 01/16/24 @ 21:47 by REYES CONTRERAS) Appendicitis (Acute) Abdominal pain (Acute) Tubular adenoma of colon (Acute) Screening for colon cancer (Acute) Family history of colon cancer (Acute) father in his 80s Medical History (Updated 01/16/24 @ 21:47 by REYES CONTRERAS) Hx of ovarian cyst Hx of ectopic Anxiety Depression Skin lesion of face Surgical History (Updated 05/30/22 @ 15:10 by Sada Merrill RN) History of colonoscopy (~04/2022) Social History (Updated 04/13/22 @ 12:04 by KRISTIAN Douglas Smoking/Tobacco Use Status: Never Smoking risk assessment performed?: Yes Alcohol Intake: current Alcohol Intake frequency: 0-2 drinks per day Alcohol type: beer, wine and hard liquor Drug use: Never Substance use type: does not use Housing: house Do you feel safe at home: Yes Do you feel safe in your relationship?: Yes SDOH(Care Management) Screening Will the Patient Participate in the Screening?: Yes Do you worry about having a steady place to live?: no In the past 12 months, have you had to go without electric, gas, oil or water in your home?: no Have you or anyone in your house had to go without enough food to eat?: no Has lack of transportation kept you from medical appointments or from doing things needed for daily living?: no Has anyone in your support network made you feel unsafe for any reason?: no
--- NOTE | 2024-01-17 16:22 | W.ANESPOSTOP ---
Postoperative Evaluation Date, Time and Location Date Performed: 01/17/24 Time Performed: 15:50 Patient Location: PACU Vital Signs Most Recent Imported Vital Signs: Most Recent Vital Signs Temp Pulse Resp BP Pulse Ox 36.3 C L 79 16 101/46 L 95 01/17/24 15:22 01/17/24 15:52 01/17/24 15:52 01/17/24 15:52 01/17/24 15:52 Pain Score Most Recent Pain Score: Most Recent Pain Score Pain Level [Right Lower 3 01/17/24 12:07 Abdomen] Pain Level 5 01/17/24 15:49 Assessment Mental Status: Awake (Alert & Oriented to Patient Baseline) Airway and Respiratory Function: Patent airway with normal (patient baseline) respiratory exam Cardiovascular Function: Hemodynamically Stable Hydration Status: Adequately Hydrated Nausea & Vomiting: No Nausea or Vomiting Pain: Pain is tolerable per patient Peripheral Nerve Block: Patient did not receive a nerve block
[2024-01-17] MEDS: Ketorolac 15 MG/ML VIAL IVP ×2 (17:35→23:43)
[2024-01-17] MEDS: Heparin 5,000 UNITS/ML VIAL 5000 UNITS SC (21:19)
[2024-01-17] MEDS: Normal Saline Flush 10 ML SYR IVP (23:44)
[2024-01-18] MEDS: ACETAMINOPHEN 1,000 MG/100 ML BAG 400 MG IVPB ×4 (02:24→19:36)
[2024-01-18 03:04] VITALS: BP 94/63; PULSE 55; RESP 16; TEMP 36.3; O2SAT 94
[2024-01-18] MEDS: PIPERACILLIN/TAZO 3.375 GM in Normal Saline 50 ML IVPB ×4 (05:30→23:43)
[2024-01-18] MEDS: Heparin 5,000 UNITS/ML VIAL 5000 UNITS SC ×3 (05:31→21:42)
[2024-01-18] MEDS: Normal Saline Flush 10 ML SYR IVP ×3 (05:31→17:38)
[2024-01-18] MEDS: Ketorolac 15 MG/ML VIAL IVP ×2 (05:39→18:15)
[2024-01-18 06:58] LABS: HGB 12.6 g/dL (11.2-15.7); MCH 30.2 pg (27.0-33.0); MCHC 33.2 % (32.0-36.0); MCV 91 fL (80-95); MPV 9.6 fL (8.0-11.0); Platelet Count 334 10^3/uL (130-400); RBC 4.17 10^6/uL (3.93-5.22); RDW 11.8 % (11.7-14.6); RDW-SD 39.7 fL; WBC 18.68 10^3/uL (4.4-10.8)
[2024-01-18 07:38] VITALS: BP 108/58; PULSE 58; RESP 17; TEMP 36.2; O2SAT 97
--- NOTE | 2024-01-18 07:50 | W.PM.PROGNOT ---
Date of Service Date of service: 01/18/24 Time of Service: 07:52 Assessment and Plan Assessment and plan (1) History of appendectomy: Assessment and plan: 63-year-old woman is postop day 1 from laparoscopic appendectomy for perforated appendicitis. She is hemodynamically stable She is tolerating diet. She has had good urine output. She has elevated leukocytosis which is completely expected. Overall plan: IV antibiotics Clear liquid diet, then start Prophylaxis Analgesia as needed Out of bed and ambulate Discharge when afebrile and no leukocytosis Subjective Subjective Interval history since last seen: No overnight events or clinical concerns. Endorses good improvement in my symptoms. Exam Narrative Exam Narrative: Gen: Non-toxic, comfortable and interactive Neuro: Alert and oriented x3 Psych: Good mood and affect. Good insight and understanding into condition. Chest: Non-labored breathing, no wheezing, no visible shortness of breath. Heart: Regular Abdomen: Soft, nondistended, appropriately tender. Her incision sites are stained but dry. The drain output is scant and mildly purulent. Objective Last Vital Signs Temp 97.2 F L 01/18/24 07:38 Pulse 58 L 01/18/24 07:38 Resp 17 01/18/24 07:38 BP 108/58 L 01/18/24 07:38 Pulse Ox 97 01/18/24 07:38 Laboratory Results - last 24 hr 01/18/24 06:30 WBC 18.68 H RBC 4.17 Hgb 12.6 Hct 38.0 MCV 91 MCH 30.2 MCHC 33.2 RDW 11.8 Plt Count 334 MPV 9.6 PAWSS Have you Been Recently Intoxicated or Drunk Within the Last 30 days?: No Have you Ever Experienced Previous Episodes of Alcohol Withdrawal?: No Have you ever Experienced Withdrawal Seizures?: No Have you ever Experienced Delirium Tremens(DT)s?: No Have you ever undergone Alcohol Rehabilitation Treatment (i.e, inpt ot outpatient treatment programs)?: No Have you ever Experienced Blackouts?: No Have you ever Combined Alcohol with other Downers within the last 90 days?: No Have you ever Combined Alcohol with any other Substance of Abuse during the last 90 days?: No Positive Blood Alcohol level on Presentation? [PCS.BAL]: No Evidence of Increased Autonomic Activity (i.e. HR>120, tremor, sweating, agitation, nausea)?: No Result: 0 Time Spent with Patient Time Spent with Patient: <25 minutes Time was spent: preparing to see the patient(eg.review tests), counseling the patient and care coordination
--- NOTE | 2024-01-18 07:51 | W.PM.OP ---
Date of service: 01/17/24 Time of Service: 15:30 Operative Note Operative Note Refer to Anesthesia Record Procedure Description: Procedures performed: 1. Laparoscopic partial cecectomy 2. Laparoscopic appendectomy Pre-op diagnosis: Acute appendicitis Postoperative diagnosis: Perforated appendicitis, intra-abdominal abscess Surgeon: Jeannette Leyva Anesthesia: Rasheeda [employer] Technician: None Indication for procedure: 63 yo woman presented with findings of abdominal pain and positive imaging concerning for acute appendicitis. No evidence of perforation on CT scan. FINDINGS: Densely adherent mass of inflammatory tissue stuck into the right lower quadrant. Large pus pool mobilized and evacuated and washed out. Etiology perforated appendicitis. Base of appendix necrotic. A couple centimeters of cecum cuff had to be divided with multiple loads of the stapler to ensure a healthy staple line. Drain left in place along paracolic gutter. Specimens: 1. Appendix/Partial cecectomy Complications: None Blood loss: Minimal Urine output: Not measured Implants/drains: 15 Monegasque BRENT drain Procedure in detail: Patient gave written consent and was in agreement with the indications, the likely benefits as well as the potential risks of surgery. She was taken back to the operating room where anesthesia was administered which was tolerated well. She was positioned supine on the operating room table and we then prepped and draped in sterile fashion. We confirmed DVT prophylaxis as well as antibiotics had been administered. When we were all in agreement with our timeout we started the procedure. A mixture of Marcaine and Exparel was injected at the umbilicus. I made a small incision and a 5 mm trocar was used to enter the abdominal cavity under direct visualization. Insufflation was performed which was tolerated well. 2 more trocars were placed under direct visualization in the suprapubic location in the left lower quadrant. Local anesthetic was also given in each of the sites. I turned my attention to the inflammatory process in the right lower quadrant. Omentum was densely adherent and I had to divide the adhesions with LigaSure. I began peeling the cecum and the terminal ileum off the sidewall where it was adherent. As I was doing this I entered an abscess cavity. Edmundo purulence was encountered and I controlled this with the laparoscopic suction. I was able to finally find the appendix. This was very inflamed and necrotic areas. It was visibly, frankly perforated near the base. Because of this, I had to mobilize the cecum and rolled it cephalad. I was able to make a window beneath the base of the appendix and under the cecum which was healthy. Using a stapler I divided across healthy cecum after ensuring I was well?away from the ileocecal valve. This freed up the appendix base with the healthy cecum, and is able to use this as a grasping edge and followed this pathway to the mesoappendix. I divided the mesoappendix with the LigaSure. The terminal ileum was densely adherent against the appendix at the medial aspect. I was able to clearly identify the border of the ileum but I had to divide it off the appendix sharply using LigaSure. There were some serosal tears to the ileum, but they were minimal and overall breathing appeared viable after these 2 structures. Using Endo Catch bag I removed the appendix from the abdomen. I copiously washed out the pelvis and right lower quadrant and right pericolic gutter. I verified hemostasis was excellent. I was happy with my staple line which appeared viable, intact and hemostatic. Because of the perforated findings and free purulence, I left a 15 Monegasque drain along the paracolic gutter and pulled it out through my existing suprapubic 5 mm port site. I closed the 12 mm port site with a Gianluca-Remington under direct visualization. I released/evacuated the pneumoperitoneum and then removed the other 5 mm trocar. The skin was closed loosely with interrupted Monocryl, loosely because the contaminated nature of the case. Sterile dressings were placed over top. Patient tolerated the procedure well. The sponge, instruments and sharps counts were correct x3 at the end of the procedure. She was extubated and taken to the PACU in hemodynamically stable condition.
--- NOTE | 2024-01-18 12:05 | PDOC.CMPRO ---
Date of service: 01/18/24 Time of Service: 12:05 Care Management Progress Note Progress Note Text Progress Note Text: Romina was sitting up in her chair visiting with friends and family when CM met with her. She stated that she is doing well today, but that per MD, she will likely remain at [facility] for 24-48H for continued IV antibiotic therapy. She stated that she is independent at baseline, and does not anticipate the need for any services upon discharge. Her will drive her home when she is ready. She is currently on clear liquids, which will be advanced as tolerated. CM will continue to follow. Discharge Potential Discharge Needs: Surgical F/U Appt Anticipated Barriers to Discharge: None Identified Patient/Family Education Needs: Review discharge instructions, discuss Ask Me Three Transportation: Private vehicle Plan: Anticipate Romina will return home once medically cleared. Her will drive her home via private vehicle. She will follow up with surgical services and her discharge plan of care. CM will continue to follow. SDOH(Care Management) Screening Will the Patient Participate in the Screening?: Yes Do you worry about having a steady place to live?: no In the past 12 months, have you had to go without electric, gas, oil or water in your home?: no Have you or anyone in your house had to go without enough food to eat?: no Has lack of transportation kept you from medical appointments or from doing things needed for daily living?: no Has anyone in your support network made you feel unsafe for any reason?: no
[2024-01-18 15:33] VITALS: BP 111/64; PULSE 62; RESP 16; TEMP 36.2; O2SAT 97
--- NOTE | 2024-01-18 16:44 | CHAPLAIN ---
Romina was up in the chair when I visited. She had four family members/friends visiting her. I explained my role and offered support.
[2024-01-18 19:32] VITALS: BP 108/62; PULSE 68; RESP 17; TEMP 36.3; O2SAT 98
[2024-01-18] MEDS: MORPHine 2 MG/ML SYR IVP (23:11)
[2024-01-19] MEDS: ACETAMINOPHEN 1,000 MG/100 ML BAG 400 MG IVPB ×2 (01:58→07:40)
[2024-01-19] MEDS: PIPERACILLIN/TAZO 3.375 GM in Normal Saline 50 ML IVPB ×4 (05:36→23:13)
[2024-01-19] MEDS: Heparin 5,000 UNITS/ML VIAL 5000 UNITS SC ×3 (05:36→23:13)
[2024-01-19 07:26] VITALS: BP 111/57; PULSE 67; RESP 16; TEMP 37.1; O2SAT 97
[2024-01-19] MEDS: Normal Saline Flush 10 ML SYR IVP (07:41)
--- NOTE | 2024-01-19 11:07 | PHA.REVIEW2 ---
Pharmacy Admission Review Admission Clinical Review Admission Pharmacy Review: Appendicitis (Acute) Abdominal pain (Acute) cedar leaf Allergy (Severe, Verified 01/16/24 23:09) Hives cedarwood Allergy (Severe, Verified 01/16/24 23:09) Hives Resuscitation Status Full Code Height 5 ft Weight 64.365 kg Pharmacy Admission Review Renal Dosing Renal Dosing: BUN 8 mg/dL (7-18) 01/16/24 18:19 Creatinine 0.7 mg/dL (0.55-1.02) 01/16/24 18:19 Medications needing adjustments: Reviewed (CrCl 48.22 mL/min) List of meds needing interventions: Current medications are okay Anticoagulation Anticoagulation: Hgb 12.6 g/dL (11.2-15.7) 01/18/24 06:30 Hct 38.0 % (36.0-46.0) 01/18/24 06:30 Plt Count 334 10^3/uL (130-400) 01/18/24 06:30 Creatinine 0.7 mg/dL (0.55-1.02) 01/16/24 18:19 DVT Prophylaxis: Reviewed Medications: Heparin (q8h) Opiate Usage Evaluate Pain Scale/Pains Meds: Reviewed (IVP morphine PRN - 4 doses given total, 2 in the last 24 hours) Scheduled Bowel Reg ordered if on Opiates?: No Relevant Labs Relevant Labs: Sodium 141 mmol/L (136-145) 01/16/24 18:19 Potassium 3.7 mmol/L (3.5-5.1) 01/16/24 18:19 Chloride 104 mmol/L (98-107) 01/16/24 18:19 Electrolytes, C-Reactive P, ESR: Reviewed (No new labs for today) Cardiac Review BP, HR, EF%: Reviewed (BP 111/57 and HR WNL) QTc Review QTc: Reviewed (No EKG on file) IV to PO Switch IV Medications: Reviewed (APAP, ketorolac, morphine, ondansetron and Zosyn) Home Meds Home Med List reviewed: Reviewed Relevent Home Meds Not ordered & why?: No known home meds Current Meds Current Medication Order Review: Reviewed Pharmacy Antibiotic Review Relevant Labs: WBC 18.68 10^3/uL (4.4-10.8) H 01/18/24 06:30 Temperature 37.1 C Pharmacy Antibiotic Activity: C/S review and Reviewed, no change Comments: Patient is on day 3 of Zosyn, POD#2 appendectomy. No cultures and patient remains afebrile.
[2024-01-19 11:21] LABS: HCT 40.2 % (36.0-46.0); HGB 13.3 g/dL (11.2-15.7); MCH 30.6 pg (27.0-33.0); MCHC 33.1 % (32.0-36.0); MCV 92 fL (80-95); MPV 9.5 fL (8.0-11.0); Platelet Count 361 10^3/uL (130-400); RBC 4.35 10^6/uL (3.93-5.22); RDW 12.1 % (11.7-14.6); RDW-SD 41.7 fL; WBC 15.89 10^3/uL (4.4-10.8)
--- NOTE | 2024-01-19 12:40 | W.PM.PROGNOT ---
Date of Service Date of service: 01/19/24 Time of Service: 12:40 Assessment and Plan Assessment and plan (1) Appendicitis: Status: Acute Assessment and plan: 63-year-old woman with perforated appendicitis. She is postop day 2 from laparoscopic appendectomy and a drain placement. She is hemodynamically stable and doing well. No fevers. Benign abdominal exam. She still has a leukocytosis though it is down?trending quite nicely. Clinically, she is doing great. I anticipate that she can be discharged home tomorrow on oral antibiotics for another couple of days. Will take her drain out in the office on Sunday or Sunday. Overall plan: Regular diet No IV fluid Analgesia as needed (no narcotics) Drain teaching IV antibiotics DVT prophylaxis Discharge home tomorrow Subjective Subjective Interval history since last seen: No overnight events. She feels a lot better today. Really minimal to no pain. She is tolerating a diet. No nausea or vomiting. No fevers. Exam Narrative Exam Narrative: Gen: Non-toxic, comfortable and interactive Neuro: Alert and oriented x3 Psych: Good mood and affect. Good insight and understanding into condition. Chest: Non-labored breathing, no wheezing, no visible shortness of breath. Heart: Regular Abdomen: Soft, nondistended and nontender. Her incision sites look perfect. No erythema. Surgical drain: Serosanguineous output. Scant. Objective Last Vital Signs Temp 98.8 F 01/19/24 07:26 Pulse 67 01/19/24 07:26 Resp 16 01/19/24 07:26 BP 111/57 L 01/19/24 07:26 Pulse Ox 97 01/19/24 07:26 Laboratory Results - last 24 hr 01/19/24 11:10 WBC 15.89 H RBC 4.35 Hgb 13.3 Hct 40.2 MCV 92 MCH 30.6 MCHC 33.1 RDW 12.1 Plt Count 361 MPV 9.5 PAWSS Have you Been Recently Intoxicated or Drunk Within the Last 30 days?: No Have you Ever Experienced Previous Episodes of Alcohol Withdrawal?: No Have you ever Experienced Withdrawal Seizures?: No Have you ever Experienced Delirium Tremens(DT)s?: No Have you ever undergone Alcohol Rehabilitation Treatment (i.e, inpt ot outpatient treatment programs)?: No Have you ever Experienced Blackouts?: No Have you ever Combined Alcohol with other Downers within the last 90 days?: No Have you ever Combined Alcohol with any other Substance of Abuse during the last 90 days?: No Positive Blood Alcohol level on Presentation? [PCS.BAL]: No Evidence of Increased Autonomic Activity (i.e. HR>120, tremor, sweating, agitation, nausea)?: No Result: 0 Time Spent with Patient Time Spent with Patient: 25-34 minutes Time was spent: preparing to see the patient(eg.review tests), ordering medications,tests, procedures, indepentently interpreting results, counseling the patient and care coordination
[2024-01-19] MEDS: Acetaminophen 500 MG TAB 1000 MG PO ×2 (13:58→19:34)
[2024-01-19 15:05] VITALS: BP 114/68; PULSE 76; RESP 17; TEMP 37.3; O2SAT 99
[2024-01-19 19:18] VITALS: BP 106/63; PULSE 77; RESP 16; TEMP 37; O2SAT 96
[2024-01-19] MEDS: Ibuprofen 400 MG TAB PO (23:53)
[2024-01-20] MEDS: Acetaminophen 500 MG TAB 1000 MG PO ×2 (02:10→07:36)
[2024-01-20] MEDS: PIPERACILLIN/TAZO 3.375 GM in Normal Saline 50 ML IVPB (06:23)
[2024-01-20] MEDS: Heparin 5,000 UNITS/ML VIAL 5000 UNITS SC (06:24)
[2024-01-20 06:34] LABS: HCT 36.3 % (36.0-46.0); HGB 12.1 g/dL (11.2-15.7); MCH 30.3 pg (27.0-33.0); MCHC 33.3 % (32.0-36.0); MCV 91 fL (80-95); MPV 9.5 fL (8.0-11.0); Platelet Count 311 10^3/uL (130-400); RBC 3.99 10^6/uL (3.93-5.22); RDW 12.2 % (11.7-14.6); RDW-SD 40.7 fL; WBC 9.36 10^3/uL (4.4-10.8)
[2024-01-20 07:20] VITALS: BP 120/74; PULSE 64; RESP 17; TEMP 36.9; O2SAT 92
--- NOTE | 2024-01-20 08:14 | W.PM.DS.N ---
Date of service: 01/20/24 Time of Service: 08:14 DS: Diagnosis Discharge Diagnosis (1) Appendicitis: Status: Acute Asessment and Plan: 63-year-old woman is hemodynamically stable and doing well postop day 3 from laparoscopic appendectomy for perforated appendicitis. She can be discharged home. Drain teaching was done. Drain out on Sunday. Discharge Plan Disposition Patient Disposition: Home Condition: Good Discharge Details Reason For Visit: Acute Appendicitis Admit Date/Time: 01/16/24 19:23 Admit Provider: Wesley Leyva Attending Provider: Wesley Leyva Primary Care Provider: Unknown,Unknown Hospital Course Hospital Course: 63 yo woman presented with abdominal pain for [address] suggested acute appendicitis. She was taken to the OR and found to have perforated appendicitis. She was kept post-op for IV antibiotics and a drain was left in place. On POD 3, she had been afebrile, her leukocytosis resolved, her drain output was clear and she was tolerating a diet and ready for discharge home. She was sent home on oral Abx, with the drain and will have it removed in the office in the next couple of days. Home Meds and New Rx's Prescriptions: New amoxicillin-pot clavulanate [Augmentin] 500-125 mg tablet 1 tab PO Q12H Qty: 6 0RF Discharge Instructions Additional Instructions: Incisions: Keep clean and dry but they do not need to be covered. It is okay to shower but no tub bathing for 1 week. Drain: Empty it twice a day and keep it squeezed so that it is actively suctioning. Activity: As tolerated. There are no restrictions. Return to work, as tolerated in the next few days. If you need a work note call the surgery office. Diet: Regular diet as tolerated Medications: Resume all of your usual/regular home medications Follow-up: Call the surgery office and schedule an appointment to be seen on Sunday for drain removal. Pain control: Take Tylenol, 1000 mg, every 6 hours on a schedule for the next 3 days. You can use ibuprofen in addition to Tylenol and use the narcotic medication only as necessary for pain preventing you from sleeping. Overall: Symptoms should not be worsening. If you have any difficulty breathing or you have return of symptoms of brought you to the hospital or your pain is otherwise worsening each day and you should call the hospital, office and/or come into the hospital to be checked out. Stand Alone Forms: Nursing Discharge Form Referrals: Wesley Leyva MD [ [facility] STAFF PHYSICIAN] - (Please call office tomorrow to make an appointment for Sunday. ) Unknown,Unknown [Primary Care Provider] - (Please call the office tomorrow to make an follow up appointment with your PCP within 1 to 2 weeks.) Activity:: Activity as Tolerated Equipment/Supplies:: No Equipment Needed Diet:: As Tolerated Discharge Orders Discharge Orders: Discharge Order (Routine); Ordered 01/20/24 Ordered By: Wesley Leyva DS: Summary Time Spent with Patient providing and/or coordinating discharge services: Greater than 30 minutes Status at Discharge Functional status at discharge: independent ambulation Overall status at discharge: patient is progressing back to baseline Mental Status: mental status grossly normal Speech and Movement: speech and movement normal Mood: congruent mood Affect: normal affect Quality:SDOH Health Related Social Needs: No Data to Display Exam Narrative Exam Narrative: Gen: Non-toxic, comfortable and interactive Neuro: Alert and oriented x3 Psych: Good mood and affect. Good insight and understanding into condition. Chest: Non-labored breathing, no wheezing, no visible shortness of breath. Heart: Regular Abdomen: Soft, nondistended, nontender. Incisions look perfect. Drain output is serous and scant. Psych Mental Status: mental status grossly normal Speech and Movement: speech and movement normal Mood: congruent mood Affect: normal affect DS: Data Vitals/I&O Vitals and I&O: Vital Signs Temperature 98.4 F 01/20/24 07:20 Temperature Source Temporal Artery Scan 01/20/24 07:20 Pulse 64 01/20/24 07:20 Pulse Rhythm Irregular 01/16/24 22:35 Pulse 79 01/17/24 15:52 Respiratory Rate 17 01/20/24 07:20 Respiratory Effort Normal, Non-Labored 01/16/24 22:35 Respiratory Depth Normal 01/16/24 22:35 Respiratory Pattern Normal 01/16/24 22:35 Blood Pressure 120/74 01/20/24 07:20 Blood Pressure Mean 106 01/17/24 15:52 Blood Pressure Position Sitting 01/16/24 18:01 Pulse Oximetry 92 01/20/24 07:20 Respiratory End-tidal CO2 28 01/17/24 15:52 Oxygen Delivery Method Room Air 01/20/24 07:20 Oxygen Flow Rate 0 01/20/24 07:20 Pain Level 3 01/20/24 07:36 Comment RN notified of bp 01/18/24 07:38 Intake & Output 01/19/24 01/19/24 01/20/24 11:59 23:59 11:59 Intake Total 300 / 400 100 / 400 360 / 360 Output Total Balance 280 / 370 90 / 370 355 / 355 Intake: IV 300 / 400 100 / 400 110 / 110 Oral 250 / 250 Output: Drainage Abdomen Other: Urine Color Yellow Yellow Urine Appearance Clear Clear Urine Odor None None Comment pt. voided in the toilet. pt voided in toilet. Pt said she voided in the toilet. Stool Size Moderate Stool Characteristics Soft Soft Liquid Liquid Brown Data Completed and Pending Labs on day of discharge: Labs from last 24 hours 01/20/24 01/19/24 06:15 11:10 WBC 9.36 15.89 H RBC 3.99 4.35 Hgb 12.1 13.3 Hct 36.3 40.2 MCV 91 92 MCH 30.3 30.6 MCHC 33.3 33.1 RDW 12.2 12.1 Plt Count 311 361 MPV 9.5 9.5 PFSH All Active Problems (Updated 01/20/24 @ 08:18 by Wesley Leyva MD) Appendicitis (Acute) Abdominal pain (Acute) Tubular adenoma of colon (Acute) Screening for colon cancer (Acute) Family history of colon cancer (Acute) father in his 80s Medical History (Updated 01/20/24 @ 08:18 by Wesley Leyva MD) Hx of ovarian cyst Hx of ectopic Anxiety Depression Skin lesion of face Surgical History (Updated 05/30/22 @ 15:10 by Sada Merrill RN) History of colonoscopy (~04/2022) Social History (Updated 04/13/22 @ 12:04 by MISAEL Douglas) Smoking/Tobacco Use Status: Never Smoking risk assessment performed?: Yes Alcohol Intake: current Alcohol Intake frequency: 0-2 drinks per day Alcohol type: beer, wine and hard liquor Drug use: Never Substance use type: does not use Housing: house Do you feel safe at home: Yes Do you feel safe in your relationship?: Yes Time Spent with Patient Time Spent with Patient: 45-69 minutes Time was spent: preparing to see the patient(eg.review tests), obtaining and/or reviewing separately otained hiistory, ordering medications,tests, procedures, indepentently interpreting results, counseling the patient, care coordination and other
== END 2024-01-20 09:33 | disposition home or self-care (01) ==
LOC: ER 19:12 → MS 21:47
PROVIDERS: Admitting Provider Student in an Organized Health Care Education/Training Program; Emergency Provider Emergency Medicine; Visit Provider Student in an Organized Health Care Education/Training Program
PROC: 0DTJ4ZZ Resection of Appendix, Percutaneous Endoscopic Approach (ICD-10-PCS; CPT 44970; principal; 2024-01-17 13:00)
DX: K35.211 Acute appendicitis with generalized peritonitis, with perforation and abscess (principal); K66.0 Peritoneal adhesions (postprocedural) (postinfection); F41.9 Anxiety disorder, unspecified; F32.A Depression, unspecified; Z80.0 Family history of malignant neoplasm of digestive organs; Z86.0101 Personal history of adenomatous and serrated colon polyps; K38.2 Diverticulum of appendix; K63.89 Other specified diseases of intestine
CPT/HCPCS: 44970; 00123; 36415; 80053; 85027; 86850; 86900; 86901; 96365; 96366; 96367; 96372; 96375; 96376; 99285; 85025; 88304; C9290; G0378; J0131; J0665; J1100; J1644; J1885; J2270; J2371; J2405; J2543; J2704; J3010

== ENCOUNTER 2024-01-30 11:13 | Emergency (ER) | payer BC, SELFPAY ==
--- NOTE | 2024-01-30 11:15 | RT.EKG_ITS ---
APPROVED REPORT Exam: Resting ECG Reason for Exam: weakness, lightheaded Patient Location: E HR:80 bpm ECG Measurements Heart Rate 80 AXIS NE 117 P -24 QRSd 101 QRS 4 QT 405 T 60 QTc 446 Conclusion Sinus rhythm...normal P axis, V-rate 60- 99 Atrial premature complexes...SV complexes w/ short R-R intvls Physician: no stemi
[2024-01-30 11:25] VITALS: BP 123/68; PULSE 71; RESP 10; TEMP 36.6; O2SAT 97
[2024-01-30 11:47] LABS: Bilirubin Negative (Negative); Blood Negative (Negative); Clarity Clear (Clear); Glucose Negative (Negative); Ketones Negative (Negative); Leukocyte Esterase Negative (Negative); Nitrite Negative (Negative); Specific Gravity <= 1.005 (1.005-1.025); Urobilinogen 0.2 mg/dL (Up to 0.2); pH 5.5 (5-8)
--- NOTE | 2024-01-30 12:03 | W.ED.GENAD ---
Discharge Plan Disposition Patient Disposition: Home Condition: Good Discharge Details Clinical Impression: Generally unwell, Leukocytosis Primary Care Provider: VIVEK GUERRERO ED Provider: Nori Kaur Home Meds and New Rx's Prescriptions: No Action No Known Home Meds Discharge Instructions Additional Instructions: As we discussed, it does sound that you are fighting against some type of infection but I am unclear as to where this may be. He did have a slight elevation in your white count but not as significant as when you are here with appendicitis. This may be a 24-hour bug, particularly as you have had some change in your bowel habits. Also could be other type of respiratory illness that has not yet fully presented itself. As your abdomen is nontender, he has not had fever and your incisions are good, I do not see indication to suggest that this is a complication from your recent appendectomy. However, I did message Dr. Ruelas so he is aware of what occurred today. Please continue to encourage hydration Tylenol as needed for discomfort if states is to arise. If you do develop any more focal symptoms please seek care urgently once again. Otherwise, please follow-up with primary care 1 to 2 weeks for reevaluation. Referrals: VIVEK GUERRERO, BUILDING INSPECTOR [Primary Care Provider] - Discharge Data Discharge Date/Time-TO BE ENTERED AT DEPARTURE: 01/30/24 14:31 HPI General Date/Time Provider Initiated Documentation: 01/30/24 11:36. Limitations to Documentation: no limitations. Information obtained by: patient, family, RN notes reviewed and old records reviewed. History of Present Illness 63 year old F presents to the emergency department with the chief complaint of General unwell, fatigue, tenesmus, described as moderate, Quality is described as other (Patient denies any pain), Patient started experiencing this hour(s) and it has been constant. No relieving factors improve symptom(s), No exacerbating factors reported . Patient notes malaise; denies chest pain, cough, fever/chills, loss of appetite, nausea/vomiting, rash, shortness of breath and weakness. Patient did receive the following treatments prior to arrival, none Related Data Home Medications ?Medication ?Instructions ?Recorded ?Confirmed Unknown [No Known Home Meds] 01/30/24 01/30/24 Allergies Allergy/AdvReac Type Severity Reaction Status Date / Time cedar leaf Allergy Severe Hives Verified 01/30/24 11:31 cedarwood Allergy Severe Hives Verified 01/30/24 11:31 General Stated Complaint: GenMedical GIOVANI: 3 Review of Systems Constitutional Constitutional: Reports as per HPI and Denies headache(s) Eyes Eyes: Reports as per HPI, Denies eye discharge and Denies irritation ENT Ears, Nose, Mouth, and Throat: Reports as per HPI and Denies headache(s) Cardiovascular Cardiovascular: Reports as per HPI, Denies chest pain and Denies dyspnea Respiratory Respiratory: Reports as per HPI and Denies dyspnea Gastrointestinal Gastrointestinal: Reports as per HPI, Denies abdominal pain, Denies nausea and Denies vomiting Integumentary/Breasts Skin/Breast: Reports as per HPI and Denies rash Neurologic Neurologic: Reports as per HPI and Denies headache(s) Exam Const General: cooperative, healthy appearing, comfortable, no acute distress, well developed and well groomed Nutritional Appearance: average body habitus and well nourished Orientation: alert and awake [facility] Head: normal to inspection, normocephalic and atraumatic Face and sinus: normal facial exam and face symmetric Mouth: oral mucosae normal, lip normal, tongue normal, oropharynx normal and moist mucous membranes Throat: tonsils normal and uvula midline Neck Neck: normal visual inspection, full ROM and no lymphadenopathy Resp Effort & Inspection: normal respiratory effort, able to speak in complete sentences and no respiratory distress Auscultation: clear to auscultation bilaterally, no rales, no rhonchi and no wheezes Cardio Rate: regular rate Rhythm: regular rhythm Heart Sounds: S1 normal and S2 normal GI Inspection: normal to inspection Palpation: soft, no hepatosplenomegaly, not firm, no guarding, no hernias, no masses and nontender Percussion: normal to percussion Auscultation: normal bowel sounds Back/Spine/Pelvis Back: no CVA tenderness Skin General skin exam: no rashes or lesions noted Neuro General: patient alert and patient awake Cognition: normal cognition Speech: speech normal Gait: normal gait Course Vital Signs Vital signs: Vital Signs Temperature 36.6 C 01/30/24 11:25 Pulse 71 01/30/24 11:25 Respiratory Rate 10 L 01/30/24 11:25 Blood Pressure 123/68 01/30/24 11:25 Pulse Oximetry 97 01/30/24 11:25 Temperature 36.6 C 01/30/24 11:25 Temperature Source Oral 01/30/24 11:25 Pulse 71 01/30/24 11:25 Respiratory Rate 10 L 01/30/24 11:25 Blood Pressure 123/68 01/30/24 11:25 Blood Pressure Position Sitting 01/30/24 11:25 Pulse Oximetry 97 01/30/24 11:25 Oxygen Delivery Method Room Air 01/30/24 11:25 Oxygen Flow Rate 0 01/30/24 11:25 Pain Level 0 01/30/24 11:25 Lab/Test Results Lab/Test Results: Laboratory Tests Range/Units 01/30/24 11:38 Urine Color (Yellow) Yellow Urine Clarity (Clear) Clear Urine pH (5-8) 5.5 Ur Specific [place] (1.005-1.025) <= 1.005 Urine Protein (Neg-Trace) mg/dL Negative Urine Ketones (Negative) mg/dL Negative Urine Blood (Negative) Negative Urine Nitrite (Negative) Negative Urine Bilirubin (Negative) Negative Urine Urobilinogen (Up to 0.2) mg/dL 0.2 Ur Leukocyte Esterase (Negative) Negative Urine Glucose (Negative) mg/dL Negative Medical Decision Making Patient is a pleasant 63-year-old female presenting today with significant other, with chief complaint of general malaise and feeling unwell. Patient is concerned this may be associated with her recent appendectomy. She suffered a appendiceal rupture with subsequent surgical removal, antibiotics, drain placement. Sounds like the postoperative course had been doing quite well. Appendix is removed on 01/16/2024. Have been feeling well until this morning. States this morning she has been feeling fatigued, having some chills, but has not had any fevers. She denies any abdominal pain. Incisions have been healing well. She states that until today, she had been feeling ill in the postsurgical period. She has not yet followed up with her surgeon regarding her new symptoms began today. She denies any new vaginal discharge. No change in urinary habits. Has had increase in number of stools and some slight tenesmus. She states that she did have a small amount of blood on the toilet paper this morning after wiping but no contreras blood in the stool or large quantities in the toilet. On exam, patient appears nontoxic. She is hemodynamically stable. Afebrile. She is not use any antipyretics today. Lungs are clear, normal cardiac exam. She feels well-hydrated. Is tolerating hydration orally well. Abdomen is benign. Her incisions appear to be healing well with no surrounding erythema, warmth, drainage, pain with palpation. Active bowel sounds. At this time, concern that patient did have a recent appendectomy however, this does not seem to be the root cause of her current symptoms. She does not appear to have an infected abdomen based on history and clinical exam. She is continue to have a good appetite. Afebrile and nontender. Considered UTI but patient does not have any CVA tenderness. She does not have any evidence to suggest a URI. She does report that she ate something unusual last night so perhaps patient does have some amount of GI bug but has not yet fully reveal itself. She also has had a history of diverticulosis which she reports is found in previous colonoscopy. She not having any tenderness at this time to suggest acute diverticuliits but this actually may be associated with noninfected diverticuli and having some bleeding. Patient discussed her/benefits of imaging and she is not tender at this time we will hold off. Will obtain baseline labs given recent surgery. Labs reveal white count of 12.4. Will this is certainly down from when she had her ruptured appendicitis, it is up compared to her follow-up. CMP and UA without significant abnormality. We discussed these findings at length. She continues to not have any focal symptoms, will continue to hold off on any imaging. I did reach out to Dr. Ruelas but have not yet heard back from him. I also advised that she can follow-up with him at any time. We did discuss disposition at length and patient would prefer to go home with her . Patient was also negative for flu and COVID. Advise close follow-up with primary care. All her questions and concerns were addressed and patient is in agreement this plan. This documentation was generated using [employer] dictation system, please disregard any oddities of phrase or misspellings. Quality:SDOH Health Related Social Needs: No Data to Display PFSH All Active Problems (Updated 01/30/24 @ 14:19 by MISAEL Rea) Leukocytosis (Acute) Generally unwell (Acute) Tubular adenoma of colon (Acute) Screening for colon cancer (Acute) Family history of colon cancer (Acute) father in his 80s Medical History (Updated 01/30/24 @ 14:19 by MISAEL Rea) Hx of ovarian cyst Hx of ectopic Anxiety Depression Skin lesion of face Surgical History (Updated 01/22/24 @ 15:31 by Bert Ruelas MD) Status post laparoscopic appendectomy Hx of appendectomy (~12/2023) History of colonoscopy (~04/2022) Social History (Updated 04/13/22 @ 12:04 by MISAEL Douglas) Smoking/Tobacco Use Status: Never Smoking risk assessment performed?: Yes Alcohol Intake: current Alcohol Intake frequency: 0-2 drinks per day Alcohol type: beer, wine and hard liquor Drug use: Never Substance use type: does not use Housing: house Do you feel safe at home: Yes Do you feel safe in your relationship?: Yes
[2024-01-30 12:22] LABS: Abs Immature Grans 0.05 10^3/uL (0.0-0.06); Absolute Basophil Count 0.05 10^3/uL (0.0-0.2); Absolute Eosinophil Count 0.01 10^3/uL (0.0-0.7); Absolute Lymphocyte Count 0.72 10^3/uL (1.2-3.4); Absolute Monocyte Count 0.43 10^3/uL (0.1-0.8); Absolute Neutrophil Count 11.14 10^3/uL (1.2-6.7); Basophils % 0.4 %; Eosinophils % 0.1 %; HCT 43.8 % (36.0-46.0); HGB 14.3 g/dL (11.2-15.7); Immature Grans % 0.4 %; Lymphocytes % 5.8 %; MCH 29.5 pg (27.0-33.0); MCHC 32.6 % (32.0-36.0); MCV 91 fL (80-95); MPV 9.3 fL (8.0-11.0); Monocytes % 3.5 %; Neutrophils % 89.8 %; Platelet Count 413 10^3/uL (130-400); RBC 4.84 10^6/uL (3.93-5.22); RDW 12.3 % (11.7-14.6); RDW-SD 40.6 fL
[2024-01-30 12:37] LABS: ALT 41 U/L (14-59); AST 27 U/L (15-37); Alkaline Phosphatase 102 U/L (46-116); Anion Gap 9.8 mmol/L (3-11); BUN 11 mg/dL (7-18); Bilirubin, Total 0.48 mg/dL (0.2-1.0); CO2 24.2 mmol/L (21.0-32.0); CREATININE 0.7 mg/dL (0.55-1.02); Calcium 9.8 mg/dL (8.5-10.1); Chloride 106 mmol/L (98-107); Estimated GFR 97.12 (mL/min/1.73m2); Glucose 113 mg/dL (74-106); Magnesium 2.1 mg/dL (1.8-2.4); Sodium 140 mmol/L (136-145)
[2024-01-30 14:29] VITALS: BP 123/68; PULSE 71; RESP 10; RESP 15; TEMP 36.6
[2024-01-30 14:37] VITALS: BP 121/65; O2SAT 99
== END 2024-01-30 14:31 | disposition home or self-care (01) ==
PROVIDERS: Emergency Provider Physician Assistant; PCP Nurse Practitioner Family
DX: R53.1 Weakness (principal); R42 Dizziness and giddiness; D72.829 Elevated white blood cell count, unspecified; Z98.890 Other specified postprocedural states
CPT/HCPCS: 80053; 82962; 87426; 93005; 99284; 81003; 83735; 85025; 93010; 99283

== ENCOUNTER 2024-07-23 16:52 | Outpatient (REF) | payer OTHER, SELFPAY ==
[2024-07-23 17:18] LABS: Calculated LDL 137 mg/dL (<100); Cholesterol 247 mg/dL (<200); HDL Cholesterol 96 mg/dL (>or=50); Triglyceride 74 mg/dL (<150)
== END 2024-07-23 16:53 | disposition home or self-care (01) ==
LOC: NCHCN 16:52
PROVIDERS: PCP Nurse Practitioner Family; Visit Provider Nurse Practitioner Family
DX: Z00.00 Encounter for general adult medical examination without abnormal findings (principal)
CPT/HCPCS: 80061

== ENCOUNTER 2024-08-28 02:07 | Outpatient (CLI) | payer OTHER, SELFPAY ==
--- NOTE | 2024-08-28 | DI.MAMMO_ITS ---
Exam(s) MAMMO SCREENING EXAM: MAMMO SCREENING CLINICAL HISTORY: Screening, Z12.31 TECHNIQUE: Bilateral full field digital CC and MLO mammographic images were obtained with 3D tomosyn thesis and utilizing computer aided detection (CAD). COMPARISON: Available for comparison. FINDINGS: Masses/Architectural Distortion: No suspicious masses or areas of architectural distortion are presen t. Microcalcifications: No suspicious pleomorphic-type are seen. Skin Thickening/Nipple Retraction: None. IMPRESSION: 1. No significant interval change with no specific features of malignancy noted. 2. Unless there is more urgent need, screening mammography is recommended, as per [employer] guidelines. BI-RADS Category 1 - Negative Breast Density - Category B - There are scattered areas of fibroglandular density. Breast density Category C or D implies that the patient has dense breast tissue. Dense breast tissue can make it harder to find cancer on a mammogram. Dense breast tissue is also associated with an incr eased risk of breast cancer. This information about the result of the mammogram report was provided to the patient to raise their awareness. Use this report when you speak with the patient about their risks for breast cancer, which includes their family history. At that time, you may recommend additional screening tests (Ultrasoun d or MRI) as these tests may add significant information. A negative radiographic report should not delay biopsy if a dominant or clinically suspicious mass is present. Up to ten percent of cancers are not identified on mammography. A negative report may reinforce clinical impression. Adenosis and dense breasts may obscure an underlying neoplasm. False positive reports average 6 to 10%. Patient will receive a letter notifying them of these results.
== END 2024-08-28 02:27 ==
PROVIDERS: PCP Nurse Practitioner Family; Visit Provider Nurse Practitioner Family
DX: Z12.31 Encounter for screening mammogram for malignant neoplasm of breast (principal); R92.323 Mammographic fibroglandular density, bilateral breasts
CPT/HCPCS: 77063; 77067